=== PATIENT | female | born 1995 | race Caucasian/White ===

== ENCOUNTER 2018-12-21 12:11 | Emergency (ER) | payer SELFPAY ==
[2018-12-21 12:12] VITALS: BP 133/94; PULSE 92; RESP 16; TEMP 37.2; O2SAT 97; BMI 23.8
--- NOTE | 2018-12-21 12:27 | CT_ITS ---
STUDY: CT ABDOMEN AND PELVIS WITHOUT CONTRAST REASON FOR EXAM: Female, 23 years old. Diffuse abdominal pain. RADIATION DOSAGE (If Supplied By Facility): CTDIvol = ( 6.33 ) mGy, DLP = ( 310.18 ) mGycm TECHNIQUE: Transaxial images were obtained from the dome of the diaphragm to the symphysis pubis without oral contrast, and without intravenous contrast. Sagittal and coronal images were reconstructed. Individualized dose optimization techniques were used for this CT. COMPARISON: None. FINDINGS: The visualized lung bases are unremarkable. The visualized portions of the heart are within normal limits. Normal liver. Normal gallbladder and extrahepatic biliary system. Normal spleen. Normal pancreas. Normal bilateral adrenal glands. Normal right kidney. Normal left kidney. Normal visualized stomach. Normal small intestine. Normal colon. The appendix is visualized and appears normal. Normal abdominal aorta. Normal inferior vena cava. Normal retroperitoneum. Normal urinary bladder. Normal abdominal wall. Normal osseous structures. CT/Abdomen/Pelvis without Cont IMPRESSION: Normal unenhanced CT of the abdomen and pelvis. Electronically Signed: Irving Lyles, at 14:55 EST , Service support ,
[2018-12-21 13:00] LABS: Absolute Lymphocyte Count 1.95 X10^3/ul (0.83-4.51); Absolute Neutrophil Count 5.1 X10^3/uL (2.0-7.7); Basophil# 0.02 X10^3/uL; Basophil% 0.3 % (0-1); Eosinophil# 0.07 X10^3/uL; Eosinophils% 0.9 % (0-5); Hemoglobin 13.9 g/dl (12.0-15.0); Lymphocyte # 1.95 X10^3/ul (4.0); Lymphocyte % 24.6 % (19-41); Mean Corp Hgb Conc 33.1 g/gl (32-36); Mean Corpuscular Volume 93.8 fL (81-99); Mean Platelet Vol. 9.8 fl (6.2-12.0); Monocyte# 0.75 X10^3/uL; Monocyte% 9.5 % (0-10); Neutrophil # 5.12 X10^3/uL (2.7-7.7); Neutrophil % 64.6 % (47-70); Platelet Count 287 K/mm3 (150-450); RBC Distribution Width CV 12.2 % (11.6-14.6); RBC Distribution Width SD 41.4 fl (35.1-43.9); Red Blood Count 4.48 M/mm3 (4.2-5.4); White Blood Count 7.9 K/mm3 (4.4-11.0)
[2018-12-21 13:01] LABS: POSITIVE COUNT NO; POSITIVE DIFFERENTIAL NO; POSITIVE MORPHOLOGY NO
[2018-12-21 13:21] LABS: ALB/GLOB Ratio 0.9 RATIO (0.9-2.4); AST(SGOT) 15 U/L (15-37); Alanine Aminotransfer ALT/SGPT 34 U/L (13-56); Albumin, Serum 3.8 g/dL (3.2-5.0); Alkaline Phosphatase 42 U/L (45-117); Anion Gap 7 (5-15); BUN 9 mg/dL (7-18); BUN/Creat Ratio 12.2 RATIO (10-20); Calcium,Total 8.9 mg/dL (8.5-10.1); Chloride 107 mmol/L (98-107); Creatinine, Serum 0.74 mg/dL (0.55-1.02); EST Glomerular Filtration Rate 101 mL/min (>60); Est Glom Filt Rate - Afr Amer 123 mL/min (>60); Estimated Creatinine Clearance 96.14 ml/min; Globulin 4.3 g/dL (2.2-4.2); Glucose 83 mg/dL (74-106); Lipase 170 U/L (73-393); Potassium 3.5 mmol/L (3.5-5.1); Protein, Total 8.1 g/dL (6.4-8.2); Sodium Level 138 mmol/L (136-145)
[2018-12-21] MEDS: 0.9% Normal Saline 1,000 ML 125 ML IV (13:22)
[2018-12-21 13:34] LABS: Pregnancy, Serum, hCG Quali. NEGATIVE Negative (0-9 Nonpreg)
[2018-12-21 13:35] LABS: Bacteria 0 SEEN /hpf (None Seen); Mucous, Urine 0 SEEN /hpf (<or=2+); Red Blood Cells-Urine 0 SEEN /hpf (0-5); Squamous Epithelial Cells - UA 0 SEEN /hpf (5-10)
[2018-12-21 13:41] LABS: Color, Urine Yellow (Yellow); Glucose, Dipstick Normal (Normal); Ketone-Dipstick Negative (Negative); Leukocyte Esterase-Dipstick 25 /ul (Negative); Nitrite-Dipstick Negative (Negative); Occult Blood-Urine 10 /ul (Negative); Protein-Dipstick Negative (Negative); Urine Bilirubin Dipstick Negative (Negative); Urine Clarity Clear (Clear); Urine Urobilinogen Normal (Normal); Urine pH 6.5 (5.0 - 8.0)
[2018-12-21 13:45] LABS: White Blood Cells 0-5 SEEN /hpf (0-5)
[2018-12-21 14:14] VITALS: PULSE 89; RESP 14; O2SAT 99
--- NOTE | 2018-12-21 14:54 | ED.DCSUM_ITS ---
- ER Visit Summary Date of Service: 12/21/18 Chief Complaint: [Abdominal pain] History of Present Illness: The patient is a 23 F [presents the emergency department complaint of abdominal pain for 3 days. Patient states the discomfort is been continuous. Patient denies any nausea or vomiting. Patient had one episode of watery stool yesterday but none since. Patient tells me she is had fever up to 102 at [facility] via forehead thermometer.. She denies any urinary symptoms such as urgency, frequency, or dysuria. Patient states that she did have an episode last week where she had some mild dysuria but apparently that has resolved. Patient was seen at [facility] today and had a urine dip and a that was negative. Patient states that she is not missed any menstrual periods. She denies any abnormal vaginal discharge. Patient is never been .] Physical Examination: [HEENT-PERRLA, EOMI. Cranial nerves II through XII grossly intact. TMs clear. Mucous membranes moist. No adenopathy. Cardiovascular-regular rate and rhythm without murmur or ectopy Lungs-clear to auscultation, chest wall stable without crepitus or subcu emphysema Abdomen-normoactive bowel sounds, soft. Patient has some mild diffuse tenderness on palpation. There is no rebound, rigidity, or peritoneal signs.. Extremities-intact ?4, normal range of motion, normal pulses, atraumatic] Test Results: [CBC with differential obtained showed a white blood cell count of 7.9, hemoglobin 13.9, hematocrit 42, platelets 287. Chemistries were unremarkable. LFTs were normal. Urinalysis was normal. HCG was negative. CT scan of the abdomen pelvis without contrast showed nothing acute.] Emergency Department Course and Treatment: [Patient did not want anything for pain in the emergency department.] Treatment Plan: [Patient will be given a prescription for Bentyl.] Disposition: [Discharged home in stable condition. Patient advised to return if worsening pain, fever, vomiting, or condition should worsen anyway.] Impression: [Abdominal pain-etiology uncertain.] This note was generated with [employer] software. It may contain incorrect words, spelling, and punctuation that were not noted in review of the chart prior to signing ED Disposition - Plan for ED Patient: Referrals: Care Physician,No Primary [Primary Care Provider] -
--- NOTE | 2018-12-21 15:21 | ED.DEP ---
ED Disposition - Plan for ED Patient: Instructions: ED Abdominal Pain Unkn Cause Prescriptions: Dicyclomine HCl [Bentyl] 20 mg PO TIDAC #20 cap Referrals: Care Physician,No Primary [Primary Care Provider] - Krissy Emerson DO [STAFF PHYSICIAN] - 5-7 Days
[2018-12-21 15:36] VITALS: BP 135/74; PULSE 82; RESP 16; O2SAT 99
== END 2018-12-21 15:37 | disposition home or self-care (01) ==
LOC: ED 12:57
PROVIDERS: Emergency Provider Emergency Medicine
DX: R10.9 Unspecified abdominal pain (principal)
CPT/HCPCS: 74176; 80053; 81001; 83690; 84703; 85025; 96360; 96361; 99283; J7030

== ENCOUNTER → 2019-01-25 15:27 | Outpatient (CLI) | payer MEDICAID, SELFPAY ==
[2019-01-25 19:59] LABS: Chlamydia Trachomatis by PCR Negative (Negative); Neisserai gonorrhoeae by PCR Negative (Negative); Probe Check PASS; Sample Adequacy Control PASS; Specimen Processing Control PASS
[2019-01-31 15:25] LABS: HPV Reflexed? NOT INDICATED
== END ==
PROVIDERS: Visit Provider Obstetrics & Gynecology
DX: Z32.01 Encounter for pregnancy test, result positive (principal); Z12.4 Encounter for screening for malignant neoplasm of cervix; Z11.3 Encounter for screening for infections with a predominantly sexual mode of transmission
CPT/HCPCS: 87491; 87591; 88175; G0145

== ENCOUNTER → 2019-02-08 10:05 | Outpatient (CLI) | payer MEDICAID, SELFPAY ==
[2019-02-08 10:44] LABS: Color, Urine Yellow (Yellow); Glucose, Dipstick Normal (Normal); Ketone-Dipstick Negative (Negative); Leukocyte Esterase-Dipstick 25 /ul (Negative); Nitrite-Dipstick Negative (Negative); Occult Blood-Urine Negative /ul (Negative); Protein-Dipstick Negative (Negative); Specific Gravity, Urine 1.015 (1.002-1.030); Urine Bilirubin Dipstick Negative (Negative); Urine Clarity Cloudy (Clear); Urine Urobilinogen Normal (Normal)
[2019-02-08 10:50] LABS: Absolute Lymphocyte Count 1.87 X10^3/ul (0.83-4.51); Absolute Neutrophil Count 4.4 X10^3/uL (2.0-7.7); Basophil# 0.02 X10^3/uL; Basophil% 0.3 % (0-1); Eosinophil# 0.05 X10^3/uL; Eosinophils% 0.7 % (0-5); Hematocrit 39.8 % (37-47); Hemoglobin 14.1 g/dl (12.0-15.0); Lymphocyte # 1.87 X10^3/ul (4.0); Lymphocyte % 27.5 % (19-41); Mean Corp Hgb Conc 35.4 g/gl (32-36); Mean Corpuscular Hgb 31.5 pg (27.0-32.0); Mean Platelet Vol. 10.4 fl (6.2-12.0); Monocyte# 0.49 X10^3/uL; Monocyte% 7.2 % (0-10); Neutrophil # 4.35 X10^3/uL (2.7-7.7); Neutrophil % 64.2 % (47-70); Platelet Count 274 K/mm3 (150-450); RBC Distribution Width SD 38.6 fl (35.1-43.9); Red Blood Count 4.47 M/mm3 (4.2-5.4); White Blood Count 6.8 K/mm3 (4.4-11.0)
[2019-02-08 11:03] LABS: COTININE Drug Screen Negative (<200 ng/mL)
[2019-02-08 11:06] LABS: POSITIVE COUNT NO; POSITIVE DIFFERENTIAL NO; POSITIVE MORPHOLOGY NO
[2019-02-08 11:13] LABS: Amphetamine Urine VISTA NEGATIVE (<1000 ng/mL); Barbiturate Urine VISTA NEGATIVE (< 200 ng/mL); Benzodiazepine Urine VISTA NEGATIVE (< 200 ng/mL); Cocaine Urine VISTA NEGATIVE (< 300 ng/mL); Ecstacy Urine VISTA NEGATIVE (< 500 ng/mL); Methadone Urine VISTA NEGATIVE (< 300 ng/mL); PCP Urine VISTA NEGATIVE (< 25 ng/mL); THC Urine VISTA POSITIVE (< 50 ng/mL); Vista UDS pH Range 7
[2019-02-08 12:00] LABS: HIV - WCH Non-Reactive (Nonreactive); Rubella IgG 109.7 IU/mL
[2019-02-08 12:01] LABS: Thyroid Stim Hormone (TSH) 1.13 uIU/mL (0.358-3.74)
[2019-02-09 16:47] LABS: HEPATITIS B SURFACE AG Negative (Negative); Hep C Antibodies <0.1 s/co ratio (0.0-0.9)
[2019-02-10 01:43] LABS: Prenatal RPR NONREACTIVE (NONREACTIVE)
== END ==
PROVIDERS: Visit Provider Obstetrics & Gynecology
DX: Z34.81 Encounter for supervision of other normal pregnancy, first trimester (principal)
CPT/HCPCS: 36415; 80307; 81002; 84443; 85025; 86703; 86762; 86803; 87340

== ENCOUNTER → 2019-04-24 17:15 | Outpatient (CLI) | payer MEDICAID, SELFPAY ==
[2019-04-24 14:51] VITALS: BMI 23.8
== END ==
PROVIDERS: Referring Provider Nurse Practitioner Women's Health; Visit Provider Nurse Practitioner Women's Health
DX: Z34.90 Encounter for supervision of normal pregnancy, unspecified, unspecified trimester (principal)
CPT/HCPCS: 87086; 87088

== ENCOUNTER → 2019-04-28 15:58 | Outpatient (CLI) | payer MEDICAID, SELFPAY ==
[2019-04-24 14:37] VITALS: BMI 24.7
[2019-04-24 14:51] VITALS: BMI 23.8
--- NOTE | 2019-04-28 16:00 | US_ITS ---
STUDY: SECOND AND THIRD TRIMESTER OBSTETRICAL ULTRASOUND REASON FOR EXAM: Female, 23 years old. Anatomy scan. LMP: 11/25/2018 TECHNIQUE: Transabdominal and Transvaginal TECHNICAL QUALITY: Adequate. PRIOR ULTRASOUND: None. FINDINGS: There is a single intrauterine fetus. The fetus is in a variable presentation. There is demonstrated cardiac activity with a heart rate of 146 bpm. There is a normal amniotic fluid volume. The largest amniotic fluid pocket measures 6.3 cm. The amniotic fluid index (BLANCA) is 15.6 cm. The placenta is posterior with a marginal previa. There are Grade 0 placental changes. The cervix measures 4.2 cm in length. The bilateral adnexal regions are normal. BIOMETRY: BPD: 4.8: 20 weeks, 4 days HC: 19.2: 21 weeks, 4 days AC: 17.5: 22 weeks, 4 days FL: 3.7: 22 weeks, 0 days CI: FL/BPD: FL/HC: FL/AC: HC/AC: age by current US: 21 weeks, 5 days. SAUL by current US: 09/03/2019. Estimated weight: 473 grams, +/- 69 grams, 47 %. age by prior US: weeks, days. SAUL by prior US: . Age by LMP: 22 weeks, 0 days. SAUL by LMP: 09/01/2019. ANATOMY: Gender: Male Cranium: Normal lateral ventricles. Normal choroid plexus. Normal cerebellum. Normal cisterna magna. Normal face, nose and lips. Chest: Normal 4-chamber heart. Abdomen/Pelvis: Normal diaphragm. Normal stomach. Normal abdominal wall. Normal cord insertion. Normal 3 vessel cord. Normal kidneys. Normal bladder. Spine: Normal cervical spine. Normal thoracic spine. Normal lumbar spine. Normal sacrum. Extremities: Normal bilateral upper extremities. Normal bilateral lower extremities. US/OB Anatomy Scan IMPRESSION: Single live fetus in a variable presentation. No demonstrated anatomic abnormality. Placenta is grade 0 and is marginal previa. Cervix is closed. age by current US: 21 weeks, 5 days. SAUL by current US: 09/03/2019. Estimated weight: 473 grams, +/- 69 grams, 47 %. Electronically Signed: Kyle Bey MD at 22:27 EDT , Service support ,
== END ==
PROVIDERS: Referring Provider Nurse Practitioner Women's Health; Visit Provider Nurse Practitioner Women's Health
DX: Z34.90 Encounter for supervision of normal pregnancy, unspecified, unspecified trimester (principal)
CPT/HCPCS: 76805

== ENCOUNTER → 2019-05-26 09:50 | Outpatient (CLI) | payer MEDICAID, SELFPAY ==
[2019-05-26 09:05] VITALS: BMI 23.8
[2019-05-26 10:28] LABS: Absolute Lymphocyte Count 1.53 X10^3/uL (0.83-4.51); Absolute Neutrophil Count 6.6 X10^3/uL (2.0-7.7); Basophil# 0.02 X10^3/uL; Basophil% 0.2 % (0-1); Eosinophils% 1.1 % (0-5); Hematocrit 35.4 % (37-47); Hemoglobin 12.1 g/dL (12.0-15.0); Lymphocyte # 1.53 X10^3/ul (4.0); Lymphocyte % 17.1 % (19-41); Mean Corp Hgb Conc 34.2 g/dL (32-36); Mean Corpuscular Hgb 32.7 pg (27.0-32.0); Mean Corpuscular Volume 95.7 fL (81-99); Mean Platelet Vol. 9.6 fl (6.2-12.0); Monocyte# 0.63 X10^3/uL; Monocyte% 7.1 % (0-10); NRBC Flagged by Analyzer 0 % (0-5); Neutrophil # 6.56 X10^3/uL (2.7-7.7); Neutrophil % 73.5 % (47-70); Platelet Count 253 K/mm3 (150-450); RBC Distribution Width CV 12.6 % (11.6-14.6); RBC Distribution Width SD 43.8 fl (35.1-43.9); White Blood Count 8.9 K/mm3 (4.4-11.0)
[2019-05-26 10:42] LABS: Glucose Challenge Gest 1H 50g 87 mg/dL (70-140)
== END ==
PROVIDERS: Referring Provider Obstetrics & Gynecology; Visit Provider Obstetrics & Gynecology
DX: Z34.92 Encounter for supervision of normal pregnancy, unspecified, second trimester (principal)
CPT/HCPCS: 36415; 82950; 85025

== ENCOUNTER → 2019-06-09 07:52 | Outpatient (CLI) | payer MEDICAID, SELFPAY ==
[2019-04-24 14:51] VITALS: BMI 23.8
[2019-05-26 09:05] VITALS: BMI 23.8
--- NOTE | 2019-06-09 07:53 | US_ITS ---
STUDY: SECOND AND THIRD TRIMESTER OBSTETRICAL ULTRASOUND REASON FOR EXAM: Female, 23 years old. Follow-up for previous low-lying placenta. LMP: November 25, 2018. TECHNIQUE: Transabdominal and Transvaginal TECHNICAL QUALITY: Adequate. PRIOR ULTRASOUND: Comparison is made with prior examination dated April 28, 2019. FINDINGS: There is a single intrauterine fetus. The fetus is in a cephalic presentation. There is demonstrated cardiac activity with a heart rate of 142 bpm. There is a normal amniotic fluid volume. The largest amniotic fluid pocket measures 4.4 cm x 3.4 cm. The amniotic fluid index (BLANCA) is is within normal limits. The placenta is posterior and low lying but not previa in location. The tip of the placenta is 1.5 cm proximal to the os. There are Grade 0 placental changes. The cervix measures 3.7 cm in length. The bilateral adnexal regions are normal. BIOMETRY: BPD: 6.68 cm: 27 weeks, 0 days HC: 26.34 cm: 28 weeks, 5 days AC: 23.62 cm: 28 weeks, 0 days FL: 5.08 cm: 27 weeks, 2 days CI: 72% FL/BPD: 76% FL/HC: FL/AC: 22% HC/AC: 1.12 age by current US: 27 weeks, 6 days. SAUL by current US: September 02, 2019. Estimated weight: 1114 grams, +/- 163 grams, 27 %. age by prior US: 27 weeks, 5 days. SAUL by prior US: September 03, 2019. Age by LMP: 28 weeks, 0 days. SAUL by LMP: September 01, 2019. US/OB Limited With Biometrics IMPRESSION: Single live intrauterine gestation with a mean gestational age of 27 weeks and 5 days. The measurements obtained today following the normal expected range. Low-lying placenta with no evidence of previa. The tip is at 1.5 cm proximal to the cervical os. Electronically Signed: Irving Lyles, at 14:10 EDT , Service support ,
== END ==
PROVIDERS: Referring Provider Nurse Practitioner Women's Health; Visit Provider Nurse Practitioner Women's Health
DX: O44.42 Low lying placenta NOS or without hemorrhage, second trimester (principal); Z3A.27 27 weeks gestation of pregnancy
CPT/HCPCS: 76816; 76817

== ENCOUNTER → 2019-07-10 09:01 | Outpatient (CLI) | payer MEDICAID, SELFPAY ==
[2019-05-26 09:05] VITALS: BMI 23.8
[2019-07-05 08:28] VITALS: BMI 23.8
--- NOTE | 2019-07-10 09:03 | US_ITS ---
STUDY: SECOND AND THIRD TRIMESTER OBSTETRICAL ULTRASOUND REASON FOR EXAM: Female, 24 years old placenta previa LMP: TECHNIQUE: Transabdominal TECHNICAL QUALITY: Adequate. PRIOR ULTRASOUND: June 09, 2019 FINDINGS: There is a single intrauterine fetus. The fetus is in a cephalic presentation. There is demonstrated cardiac activity with a heart rate of 163 bpm. There is a normal amniotic fluid volume. The largest amniotic fluid pocket measures 4 cm. The amniotic fluid index (BLANCA) is 12.3 cm. The placenta is posterior and fundal There are Grade 0 placental changes. The cervix measures 3.9 cm in length. The bilateral adnexal regions are nonvisualized BIOMETRY: BPD: 7.76 cm: 31 weeks, 1 days HC: 30.02 cm: 33 weeks, 3 days AC: 27.58 cm: 31 weeks, 5 days FL: 5.97 cm: 31 weeks, 1 days CI: 0.74 FL/BPD: 0.77 FL/HC: FL/AC: 0.22 HC/AC: 1.09 age by current US: 31 weeks, 6 days. SAUL by current US: September 05, 2019. Estimated weight: 1798 grams, +/- 263 grams, 17 %. age by prior US: 32 weeks, 2 days. SAUL by prior US: September 02, 2018. Age by LMP: 32 weeks, 3 days. SAUL by LMP: September 01, 2019. ANATOMY: Not studied at this time. Previously noted low-lying placenta has resolved US/OB Limited With Biometrics IMPRESSION: Viable intrauterine gestation approximately 32 weeks gestational age. No evidence for low-lying placenta or placenta previa at this time Electronically Signed: Malcolm Snow MD at 16:57 EDT , Service support ,
== END ==
PROVIDERS: Referring Provider Nurse Practitioner Women's Health; Visit Provider Nurse Practitioner Women's Health
DX: O44.20 Partial placenta previa NOS or without hemorrhage, unspecified trimester (principal); Z3A.00 Weeks of gestation of pregnancy not specified
CPT/HCPCS: 76816

== ENCOUNTER → 2019-08-09 15:08 | Outpatient (CLI) | payer MEDICAID, SELFPAY ==
[2019-08-09 09:03] VITALS: BMI 23.8
== END ==
PROVIDERS: Referring Provider Nurse Practitioner Women's Health; Visit Provider Nurse Practitioner Women's Health
DX: Z36.85 Encounter for antenatal screening for Streptococcus B (principal)
CPT/HCPCS: 87081

== ENCOUNTER 2019-08-30 00:35 | Inpatient (IN) | payer MEDICAID, SELFPAY ==
[2019-08-23 09:04] VITALS: BMI 23.8
[2019-08-30 01:18] VITALS: BMI 28.3
[2019-08-30] MEDS: Lactated Ringers 500 ML 999 ML IV (01:35)
[2019-08-30 01:59] LABS: Absolute Lymphocyte Count 2.44 X10^3/uL (0.83-4.51); Absolute Neutrophil Count 4.9 X10^3/uL (2.0-7.7); Basophil# 0.03 X10^3/uL; Basophil% 0.4 % (0-1); Eosinophil# 0.09 X10^3/uL; Eosinophils% 1.1 % (0-5); Hemoglobin 11.8 g/dL (12.0-15.0); Lymphocyte # 2.44 X10^3/ul (4.0); Lymphocyte % 28.9 % (19-41); Mean Corp Hgb Conc 34.7 g/dL (32-36); Mean Corpuscular Hgb 32.7 pg (27.0-32.0); Mean Corpuscular Volume 94.2 fL (81-99); Mean Platelet Vol. 10.4 fl (6.2-12.0); Monocyte# 0.91 X10^3/uL; Monocyte% 10.8 % (0-10); NRBC Flagged by Analyzer 0 % (0-5); Neutrophil # 4.91 X10^3/uL (2.7-7.7); Neutrophil % 58.2 % (47-70); Platelet Count 212 K/mm3 (150-450); RBC Distribution Width CV 12.4 % (11.6-14.6); RBC Distribution Width SD 42.7 fl (35.1-43.9); Red Blood Count 3.61 M/mm3 (4.2-5.4); White Blood Count 8.4 K/mm3 (4.4-11.0)
[2019-08-30] MEDS: Ondansetron 4 MG/2 ML Vial IV ×2 (02:12→07:17)
[2019-08-30] MEDS: Lactated Ringers 1,000 ML 50 ML IV (02:16)
[2019-08-30] MEDS: 0.9% Saline Lock 10 ML Syringe IV ×3 (02:16→10:09)
[2019-08-30 03:37] LABS: Amphetamine Urine VISTA NEGATIVE (<1000 ng/mL); Barbiturate Urine VISTA NEGATIVE (< 200 ng/mL); Benzodiazepine Urine VISTA NEGATIVE (< 200 ng/mL); Cocaine Urine VISTA NEGATIVE (< 300 ng/mL); Ecstacy Urine VISTA NEGATIVE (< 500 ng/mL); Methadone Urine VISTA NEGATIVE (< 300 ng/mL); PCP Urine VISTA NEGATIVE (< 25 ng/mL); THC Urine VISTA NEGATIVE (< 50 ng/mL); Vista UDS pH Range 6
[2019-08-30] MEDS: Nalbuphine 10 MG/ML Ampul IV (07:17)
--- NOTE | 2019-08-30 07:29 | PCM.HP.OB ---
- Problem List (1) SROM (spontaneous rupture of membranes) Status: Acute (2) Genital HSV Status: Acute Qualifiers: Comment: acyclovir at 36 weeks (3) Influenza vaccination declined by caregiver Status: Acute (4) Status: Acute Qualifiers: Comment: declined all genetic, carrier, and ntd screening. (5) Supervision of normal Status: Acute Qualifiers: Comment: PRR SAUL 09/01/19 bertrand Garcia (Bill) History Date of Admission: 08/30/19 Final SAUL: 09/01/19 Gestational age: 39 Weeks and 5 Days History of this : This is a 24 year-old, at 39 weeks gestational age presents IAL dilated and ruptured. clear fluid no vb good fm no complications in . Medical History: Medical History (Last Reviewed 08/23/19 @ 09:04 by Jane Murphy) No significant medical problems Surgical History: Surgical History (Last Reviewed 08/23/19 @ 09:04 by Jane Murphy) Inguinal hernia K40.90 repaired 2001 Allergies sulfamethoxazole [From Septra] Allergy (Verified 08/23/19 09:03) Rash trimethoprim [From Septra] Allergy (Verified 08/23/19 09:03) Rash Home Medications: Home Medications vitamin#30 30 mg iron-10 mg iron-folic acid 1 mg-omg3 capsule 1 cap PO DAILY cap 05/15/19 Valacyclovir HCl [Valacyclovir] 500 mg PO DAILY 08/30/19 Smoking Status: Never smoker Alcohol: None Substance Use Type: Marijuana Number of Fetus(es): 1 NST - FHR Rate Baby A Baseline: 130 Variability:: Moderate Accelerations:: 15 x 15 Decelerations:: None NST Reactive:: Yes FHR Category:: Category I Uterine Activity:: q 2-3 History Past Pregnancies: Past Pregnancies Delivery Date Name GA/Weeks Outcome Route Weight Infant Gender Labor Length Anesthesia Delivery Location Provider FOB Labs: Mom's Labs & Results 08/30/19 08/30/19 08/30/19 01:35 01:35 02:50 WBC 8.4 RBC 3.61 L Hgb 11.8 L Hct 34.0 L MCV 94.2 MCH 32.7 H MCHC 34.7 RDW Std Deviation 42.7 RDW Coeff of Catie 12.4 Plt Count 212 MPV 10.4 Immature Gran % (Auto) 0.600 Neut % (Auto) 58.2 Lymph % (Auto) 28.9 Emmet % (Auto) 10.8 H Eos % (Auto) 1.1 Baso % (Auto) 0.4 Absolute Neuts (auto) 4.9 Absolute Lymphs (auto) 2.44 Nucleated RBC % 0 Urine Opiates Screen NEGATIVE Urine Methadone Screen NEGATIVE Ur Barbiturates Screen NEGATIVE Ur Phencyclidine Scrn NEGATIVE Ur Amphetamines Screen NEGATIVE U Methamphetamin-MDMA NEGATIVE U Benzodiazepines Scrn NEGATIVE Urine Cocaine Screen NEGATIVE U Cannabinoids Screen NEGATIVE Ur Drug Screen Comment Blood Type B POSITIVE Antibody Screen NEGATIVE Course Did the patient receive Yes care? Labs Blood Type: B RH: POSITIVE RPR/VDRL/Syphilis Nonreactive Rubella status Immune HbSAg Negative Date Done: 02/08/19 Chlamydia Negative Gonorrhea Negative HIV/AIDS Non-Reactive Group B Strep: Negative Current Obstetrical History Gestational Diabetes No Incompetent Cervix No Infertility No IUGR No Macrosomia No Hypertension/Pre-eclampsia No Placenta Previa/Abruption No PTL/PROM No Uterine anomaly No Oligohydramnios No Polyhydramnios No Multiple gestation No Past Medical History Asthma No Diabetes No Hypertension No Heart disease No Mitral valve prolapse No Neurologic/Seizure disorder/ No Migraines Kidney disease No Liver disease No Varicosities No Clotting disorders/Hx of DVT No Thyroid Dysfunction No Other medical diseases No Psychiatric disorders No Major trauma No Abnormal PAP smear No Sleep apnea No Mammogram in the last 2 years No Enter 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 Expected Delivery Method: Spontaneous Vaginal Describe any other labor & delivery plans:: additional social history: Spouse: Jose Rider: Bill. OB Visit. SAUL Calculator. Estimated Delivery DateMethodCurrent WG. Current Hhwuocdt37/08/19LMP (Certain)39w 0d. Other Jqidildru46/10/19Ultrasound #138w 5d. Expected Delivery Route/Plan. . Labor Preferences-. labor support person: Jose, mom hetal. pain management: wants natural. cut cord/dad catch: yes. : yes. PP control planned: pill. discussed possible routes of delivery and associated risks: []. special requests: []. Specific Issue/Plans. flu vaccine: tdap vaccine: declines. rhogam: na. LARC form signed: declined Review of Systems Constitutional: Denies: Fever, Malaise Eyes: Denies: Blurred vision, Vision Change HEENT: Denies: Head Aches, Visual Changes Cardiovascular: Denies: Chest Pain, Palpitations Respiratory: Denies: Cough, Shortness of Breath, Wheezing Gastrointestinal: Denies: Abdominal Pain, Diarrhea, Nausea, Vomiting Genitourinary: Denies: Dysuria, Hematuria Musculoskeletal: Denies: Joint Pain, Muscle pain Skin: Denies: Lesions, Rash Neurological: Denies: Blurred vision, Focal weakness, Headaches Psychiatric: Denies: Anxiety, Depression Endocrine: Denies: Heat/ Cold Intolerance Hematologic/ Lymphatic: Denies: Easy Bruising, Easy Bleeding Physical Exam General: Alert, Cooperative, No apparent distress HEENT: Atraumatic, Normocephalic. Negative for: Thyromegaly, Lymphadenopathy Cardiovascular: Regular rate Lungs: Normal air movement Abdomen: Soft, Non Tender, Gravid Neurological: Deep Tendon Reflexes 2+/4 and Symmetrical, Neuro grossly intact. Negative for: Clonus AIR BRAKE ADJUSTER: Normal external genitalia. Negative for: Vulvar lesions Estimated gestational size: Appropriate for gestational size Presentation: Cephalic Cervix Dilation (cm): 6 Assessment/Plan All Active Problems (Last Reviewed 08/23/19 @ 09:04 by Jane Murphy) SROM (spontaneous rupture of membranes) (Acute) Influenza vaccination declined by caregiver (Acute) Genital HSV (Acute) Supervision of normal (Acute) (Acute) HSV (herpes simplex virus) infection (Resolved) Low lying placenta nos or without hemorrhage, third trimester (Resolved) Marginal placenta previa (Resolved) This is a 24 year-old, , at 39 weeks gestational age presents IAL. Patient presents IAL, plan expectant management for , pitocin PRN if needed. Pain management: prefers minimal intervention. GBS negative. Management of any complications: None I have reviewed the [facility] and made any clinically relevant updates.
--- NOTE | 2019-08-30 08:37 | PCM.OPRPT ---
Problem List (1) SROM (spontaneous rupture of membranes) Status: Acute (2) Genital HSV Status: Acute Qualifiers: Comment: acyclovir at 36 weeks (3) Influenza vaccination declined by caregiver Status: Acute (4) Status: Acute Qualifiers: Comment: declined all genetic, carrier, and ntd screening. (5) Supervision of normal Status: Acute Qualifiers: Comment: PRR SAUL 09/01/19 bertrand Garcia (Bill) Vaginal Delivery Maternal Presentation: Active Labor ial 39w5d Amniotic Membrane Rupture Type: Spontaneous at home Amniotic Fluid Description: Clear Final SAUL: 09/01/19 Gestational age: 39 Weeks and 5 Days Date of Procedure: 08/30/19 Pre-Operative Diagnosis: ial Post-Operative Diagnosis: same Surgery/ Procedure Performed: Spontaneous Vaginal Delivery Type of Anesthesia: None Multi Select Codes - Urinary/Genital Urinary/Genital CPT Codes: 26644 Vaginal Delivery [facility]
[2019-08-30] MEDS: Oxytocin 30 units/NS 500 ml 30 UNITS/500 ML IV.SOLN 334 UNITS IV (10:09)
[2019-08-30] MEDS: Methylergonovine 0.2 MG/ML Ampul IM (10:12)
--- NOTE | 2019-08-30 10:17 | PCM.OPRPT ---
Problem List (1) SROM (spontaneous rupture of membranes) Status: Acute (2) Genital HSV Status: Acute Qualifiers: Comment: acyclovir at 36 weeks (3) Influenza vaccination declined by caregiver Status: Acute (4) Status: Acute Qualifiers: Comment: declined all genetic, carrier, and ntd screening. (5) Supervision of normal Status: Acute Qualifiers: Comment: PRR SAUL 09/01/19 bertrand Garcia (Bill) (6) Vaginal delivery Status: Acute (7) Uterine atony, , without hemorrhage Status: Acute Vaginal Delivery Maternal Presentation: Active Labor 9w5d IAL Method of Induction: Pitocin Amniotic Membrane Rupture Type: Spontaneous at home Amniotic Fluid Description: Clear Final SAUL: 09/01/19 Gestational age: 39 Weeks and 5 Days Date of Procedure: 08/30/19 Pre-Operative Diagnosis: ial Post-Operative Diagnosis: same Surgery/ Procedure Performed: Spontaneous Vaginal Delivery Type of Anesthesia: None Description of Procedure: Patient began pushing and delivered the head in the BLU presentation. The head was delivered atraumatically]. The anterior and posterior shoulders delivered without complication followed by the rest of the infant and the infant was placed on the maternal abdomen. Delayed cord clamping was employed for approximately 60 seconds. Cord was clamped and cut and gentle traction was applied to the cord and the placenta delivered spontaneously immediately following it was noted to be intact with three-vessel cord. The perineum and vagina were inspected and noted to have no significant laceration. some atony was noted initially and treated with bimanul massage and methergine, pitocin. this resolved. EBL was 500 cc. Patient and tolerated delivery well. Presentation: BLU Placental Delivery Description: Spontaneous Cord Vessel Description: 3 Vessels Cord Entanglement: None Estimated Blood Loss: 500 A gender: Female Episiotomy Description: None Laceration: None Medications given after delivery: IV Pitocin, IM Methergin Complications: None
[2019-08-30 17:00] VITALS: BP 97/60; PULSE 80; RESP 16; TEMP 37.4
[2019-08-30 20:16] VITALS: BP 116/68; PULSE 96; RESP 16; TEMP 37.3
[2019-08-30] MEDS: Naproxen 250 MG Tablet 500 MG PO (23:43)
[2019-08-30 23:45] VITALS: BP 106/64; PULSE 102; RESP 16; TEMP 37.4
[2019-08-31 05:05] VITALS: BP 105/58; PULSE 77; RESP 16; TEMP 37.2
[2019-08-31] MEDS: Acetaminophen 325 MG Tablet PO (05:22)
[2019-08-31 08:15] VITALS: BP 109/69; PULSE 84; RESP 16; TEMP 36
[2019-08-31] MEDS: Senna/Docusate Sodium 1 Tablet PO (08:35)
[2019-08-31 09:19] VITALS: PULSE 84; RESP 16
[2019-08-31 14:24] VITALS: BP 109/59; PULSE 80; RESP 16; TEMP 36.7
--- NOTE | 2019-08-31 16:00 | CASEMGMT ---
Social Work Assessment Labor and Delivery Unit Date of Referral: 08-31-2019 Time of Referral: [phone] Referred By: notification by nursing staff Date of Intervention: 08-31-2019 Reason for Referral: maternal drug screen positive during ; negative at delivery. History obtained from: medical records, mother of baby (MOB) Karen, and father of baby (FOB) Jose Porras. Household composition: MOB and FOB live alone in a home. No reported safety concerns. Patient's parent/guardian status: TALI is 24 years old and to FOB for the last 2 years, but have been together longer. MOB denies any form of abuse in relationship with FOB. FOB has one older sone, Bill, who lives out of state. MOB and FOB go to visit regularly. baby Seun Porras is the first child for MOB and FOB together. Medical History: TALI is G1, P0 to 1 after delivering Seun. care started it [facility] but then transferred care to Dr. Arias when MOB found out usual OBGYN was leaving practice in [place]. MOB transferred care at 22 weeks. Educational Status: No issues reading writing or with learning comprehension. 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 No reported issues with finances at this time. Supplies: Report to have all needed supplies including safe sleep space and car seat. MOB is breast feeding and reports this is going well. Childcare/Caregiver(s): MOB and then help from FOB. Transportation: No issues reported or indicated. Programs/Agencies Involved: No agency involvement other than Medicaid through S. MOB declines referral to [facility] or WIC, but accepting of information on both services. Children Services/Legal Issues: None reported or indicated. Behavioral Health Issues: Mental Health History: MOB denies history of depression, anxiety, thoughts of suicide, or other mental health concerns. Substance Use History: Social alcohol use but denies in . MOB admits to smoking marijuana at a [employer], prior to knowledge. MOB denies use after finding out about . Denies history of other drug use or abuse. Drug Screens: Positive at first visit with first OB on 02.08.2019. No retesting until deliver, which was negative. Baby's urine is negative and meconium is pending. Family/Social Stressors: No reported stressors. was planned. Support Systems: MOB reports FOB is a strong support, as well as both sides of the family. MOB reports to feel to have adequate support. FOB does over half of his sheet metal worker apprentice, so will be around to help MOB out if needed over the next few weeks. Depression/Shaken Baby/Safe Sleeping : Information given on safe sleeping, shaken baby prevention and tips to soothe baby, and depression. ASSESSMENT: Met with MOB and FOB together and then with MOB privately. No issues when social service manager explained need to talk to MOB privately for a bit. Verbally reviewed the [facility] Depression screen with MOB. Score was a 0. No indication of depression or anxiety present at this time. When FOB was present, did verbally review depression and anxiety, risk factors, and importance of seeking out help and assistance should symptoms arise. Both MOB and FOB express understanding. During private conversation with MOB, MOB denies any form of abuse, control, intimidation, or coercion in relationship with FOB. MOB and FOB report to have needed baby supplies, to have enough support from family, and are looking forward to going home with the baby. While alone with MOB, addressed the positive drug screen during . MOB admits to smoking marijuana while at a [employer] with friends and that MOB did not think or know she was . MOB reports FOB is aware of this. MOB reports now that she and FOB are parents, priorities are shifting and previously accepted extracurricular activities are not a priority or something in the plans for the future. MOB report being a parents to Seun is the most important and denies intent or desire to use marijuana again in the future. Educated MOB that should the meconium drug screen come back positive that children services would follow up with parents in the community. MOB accepted information presented. Note, during social work visit MOB was attentive to baby, had baby to breast and was gentle in how handled the baby. MOB endorsing loving feelings towards the baby. No concerns voiced by nursing staff regarding parent/child interactions or bonding. Safe Plan of Care for related to substance use: to abstain from future substance use. PLAN: MOB and baby to home when ready for discharge. Provided with [facility], depression packet, [facility] information, WIC contact information. Monitor for meconium drugs screen results. No other services requested or indicated. -BRENTON Jimenez, CAR DUMPER
[2019-08-31 19:50] VITALS: BP 109/64; PULSE 78; RESP 16; TEMP 37.2
--- NOTE | 2019-08-31 21:54 | PCM.PN.OB ---
Patient Problems: Active and Suspected Problems (Last Reviewed 08/23/19 @ 09:04 by Jane Murphy) SROM (spontaneous rupture of membranes) (Acute) Vaginal delivery (Acute) Uterine atony, , without hemorrhage (Acute) Subjective: doing well no complaints pain controlled no CP SOB N V ambulating well tolerating po lochia moderate, going well - Physical Exam Vitals/I&O's: Vital Signs Temp Pulse Resp BP 98.9 F 78 16 109/64 08/31/19 19:50 08/31/19 19:50 08/31/19 19:50 08/31/19 19:50 Oxygen Delivery Method Room Air Weight: 160 lb Body Mass Index (BMI) 28.3 Intake and Output for Last 24 Hours 08/29/19 08/30/19 08/31/19 23:59 23:59 23:59 Intake Total 2500.83 / 2500.83 Output Total 3076 / 3076 45 / 45 Balance -575.17 / -575.17 -45 / -45 General: Alert, Oriented x3 Current Medications Acetaminophen (Tylenol) 325 - 650 mg PO Q4H PRN PRN PRN Reason: Pain Score 1-3/10 Last Admin: 08/31/19 05:22 Dose: 650 mg Documented by: Acetaminophen (Tylenol) 1,000 mg PO Q8H PRN PRN PRN Reason: Pain Score 1-3/10 Al Hydroxide/Mg Hydroxide (Mylanta Ii) 15 - 30 ml PO Q4H PRN PRN PRN Reason: INDIGESTION Bisacodyl (Dulcolax) 10 mg RECTAL UD PRN PRN Reason: If no BM Citric Acid/Sodium Citrate (Bicitra) 30 ml PO X1 PRN PRN Reason: Section Dibucaine (Dibucaine) 1 applic TOPICAL TID PRN PRN; Protocol PRN Reason: Discomfort Hydrocortisone (Hytone) 1 applic TOPICAL TID PRN PRN; Protocol PRN Reason: Discomfort Lactated Ringer's () 500 mls @ 999 mls/hr IV .Q31M PRN PRN Reason: Epidural Lactated Ringer's () 500 mls @ 999 mls/hr IV .Q31M PRN PRN Reason: Corrective Measures Last Infusion: 08/30/19 02:15 Dose: Infused Documented by: Lactated Ringer's () 1,000 mls @ 50 mls/hr IV .Q20H GISELL Last Admin: 08/31/19 07:38 Dose: Not Given Documented by: Methylergonovine Maleate (Methergine) 0.2 mg IM X1 PRN PRN Reason: Excess bleeding/uterine atony Last Admin: 08/30/19 10:12 Dose: 0.2 mg Documented by: Nalbuphine HCl (Nubain) 5 - 10 mg IV Q3H PRN PRN PRN Reason: Pain Score 4-10/10 Last Admin: 08/30/19 07:17 Dose: 10 mg Documented by: Nalbuphine HCl (Nubain) 5 - 10 mg SC Q3H PRN PRN PRN Reason: Pain Score 4-10/10 Naproxen (Naprosyn) 500 mg PO Q8H PRN PRN PRN Reason: Pain Score 1-3/10 Last Admin: 08/30/19 23:43 Dose: 500 mg Documented by: Ondansetron HCl (Zofran) 4 mg IV Q4H PRN PRN PRN Reason: NAUSEA Last Admin: 08/30/19 07:17 Dose: 4 mg Documented by: Ondansetron HCl (Zofran) 4 mg IV Q4H PRN PRN PRN Reason: Nausea Oxycodone HCl (Oxyir) 5 - 10 mg PO Q4H PRN PRN PRN Reason: Pain Score 4-10/10 Prochlorperazine Edisylate (Compazine Iv) 10 mg IV Q6H PRN PRN PRN Reason: NAUSEA Senna/Docusate Sodium (Senokot-S, Mila-Colace) 1 - 2 tablet PO DAILY PRN PRN PRN Reason: Constipation Last Admin: 08/31/19 08:35 Dose: 2 tablet Documented by: Simethicone (Mylicon) 80 mg PO PCHS PRN PRN Reason: Indigestion/Stomach pain Sodium Chloride () 10 - 40 ml IV X1 PRN PRN Reason: SALINE FLUSH Last Admin: 08/30/19 10:09 Dose: 10 ml Documented by: Sodium Chloride () 5 - 15 ml IV UD PRN PRN Reason: SALINE FLUSH Medical Necessity - Tobacco Use Smoking Status: Never smoker Assessment/Plan All Active Problems (Last Reviewed 08/23/19 @ 09:04 by Jane Murphy) SROM (spontaneous rupture of membranes) (Acute) Vaginal delivery (Acute) Uterine atony, , without hemorrhage (Acute) Influenza vaccination declined by caregiver (Acute) Genital HSV (Acute) Supervision of normal (Acute) (Acute) HSV (herpes simplex virus) infection (Resolved) Low lying placenta nos or without hemorrhage, third trimester (Resolved) Marginal placenta previa (Resolved) doing well no complaints pain controlled no CP SOB N V ambulating well tolerating po lochia moderate, going well
--- NOTE | 2019-08-31 22:26 | DCINST_ITS ---
Discharge Diet: No Restrictions Discharge Activity: Return to Normal Activity, May not drive while taking narcotic pain medications., May Shower May resume sexual activity in: 4-6 weeks Call your doctor if your incision/area has: Continuous Slow Oozing, Sudden Increased Bleeding, Increased Pain/ Swelling, Increased Redness, Foul Smelling Discharge Additional Instructions: If you experience any of the following, contact your healthcare provider. * Bleeding that soaks a pad every hour for 2 hours * Fever 100.4 or higher * Unrelieved incision or abdominal pain * Swelling, redness, discharge or bleeding from your incision or episiotomy site * Your incision begins to separate * Problems urinating (including inability to urinate or burning while urinating). * Visual changes * Severe headache * Flu-like symptoms * Pain or redness in one of both of your breasts * Pain, warmth, tenderness or swelling in your legs, especially the calf area * Frequent nausea and vomiting * Symptoms of depression or anxiety If you experience any of the following, call 911 or go to the nearest Emergency Room. * Chest pain * Problems breathing * Seizure activity * Partial or complete paralysis of a body part, slurred speech, weakness or drooping of the face, or a sudden inability to walk or hold your balance Allergies/Adverse Reactions: Allergies sulfamethoxazole [From ] Allergy (Verified 08/23/19 09:03) Rash trimethoprim [From ] Allergy (Verified 08/23/19 09:03) Rash Medications to take at Discharge vitamin#30 30 mg iron-10 mg iron-folic acid 1 mg-omg3 capsule 1 cap PO DAILY cap 05/15/19 Valacyclovir HCl [Valacyclovir] 500 mg PO DAILY 08/30/19 Please Follow Up With: Christina Arias MD - [phone] When: Call to make an appointment with your doctor in 6 weeks. If you had elevated Blood pressure or 4th degree laceration you will need to be seen in 2 weeks. Primary Care Physician: Care Physician,No Primary [Primary Care Provider] - Test Results: Test results from this visit will be discussed in further detail at your follow- up appointment, if applicable.
[2019-09-01 02:00] VITALS: BP 102/58; PULSE 80; RESP 16; TEMP 36.6
--- NOTE | 2019-09-01 08:26 | PCM.PN.OB ---
Patient Problems: Active and Suspected Problems (Last Reviewed 08/23/19 @ 09:04 by Jane Murphy) SROM (spontaneous rupture of membranes) (Acute) Vaginal delivery (Acute) Uterine atony, , without hemorrhage (Acute) Subjective: doing well no complaints pain controlled no CP SOB N V ambulating well tolerating po lochia moderate, going well - Physical Exam Vitals/I&O's: Vital Signs Temp Pulse Resp BP 97.8 F 80 16 102/58 L 09/01/19 02:00 09/01/19 02:00 09/01/19 02:00 09/01/19 02:00 Oxygen Delivery Method Room Air Weight: 160 lb Body Mass Index (BMI) 28.3 Intake and Output for Last 24 Hours 08/30/19 08/31/19 09/01/19 23:59 23:59 23:59 Intake Total 2500.83 / 2500.83 Output Total 3076 / 3076 45 / 45 Balance -575.17 / -575.17 -45 / -45 General: Alert, Oriented x3 Abdomen: Soft, Non Tender, Non-Distended, - - FF below U Current Medications Acetaminophen (Tylenol) 325 - 650 mg PO Q4H PRN PRN PRN Reason: Pain Score 1-3/10 Last Admin: 08/31/19 05:22 Dose: 650 mg Documented by: Acetaminophen (Tylenol) 1,000 mg PO Q8H PRN PRN PRN Reason: Pain Score 1-3/10 Al Hydroxide/Mg Hydroxide (Mylanta Ii) 15 - 30 ml PO Q4H PRN PRN PRN Reason: INDIGESTION Bisacodyl (Dulcolax) 10 mg RECTAL UD PRN PRN Reason: If no BM Citric Acid/Sodium Citrate (Bicitra) 30 ml PO X1 PRN PRN Reason: Section Dibucaine (Dibucaine) 1 applic TOPICAL TID PRN PRN; Protocol PRN Reason: Discomfort Hydrocortisone (Hytone) 1 applic TOPICAL TID PRN PRN; Protocol PRN Reason: Discomfort Lactated Ringer's () 500 mls @ 999 mls/hr IV .Q31M PRN PRN Reason: Epidural Lactated Ringer's () 500 mls @ 999 mls/hr IV .Q31M PRN PRN Reason: Corrective Measures Last Infusion: 08/30/19 02:15 Dose: Infused Documented by: Methylergonovine Maleate (Methergine) 0.2 mg IM X1 PRN PRN Reason: Excess bleeding/uterine atony Last Admin: 08/30/19 10:12 Dose: 0.2 mg Documented by: Nalbuphine HCl (Nubain) 5 - 10 mg IV Q3H PRN PRN PRN Reason: Pain Score 4-10/10 Last Admin: 08/30/19 07:17 Dose: 10 mg Documented by: Nalbuphine HCl (Nubain) 5 - 10 mg SC Q3H PRN PRN PRN Reason: Pain Score 4-10/10 Naproxen (Naprosyn) 500 mg PO Q8H PRN PRN PRN Reason: Pain Score 1-3/10 Last Admin: 08/30/19 23:43 Dose: 500 mg Documented by: Ondansetron HCl (Zofran) 4 mg IV Q4H PRN PRN PRN Reason: NAUSEA Last Admin: 08/30/19 07:17 Dose: 4 mg Documented by: Ondansetron HCl (Zofran) 4 mg IV Q4H PRN PRN PRN Reason: Nausea Oxycodone HCl (Oxyir) 5 - 10 mg PO Q4H PRN PRN PRN Reason: Pain Score 4-10/10 Prochlorperazine Edisylate (Compazine Iv) 10 mg IV Q6H PRN PRN PRN Reason: NAUSEA Senna/Docusate Sodium (Senokot-S, Mila-Colace) 1 - 2 tablet PO DAILY PRN PRN PRN Reason: Constipation Last Admin: 08/31/19 08:35 Dose: 2 tablet Documented by: Simethicone (Mylicon) 80 mg PO PCHS PRN PRN Reason: Indigestion/Stomach pain Sodium Chloride () 10 - 40 ml IV X1 PRN PRN Reason: SALINE FLUSH Last Admin: 08/30/19 10:09 Dose: 10 ml Documented by: Sodium Chloride () 5 - 15 ml IV UD PRN PRN Reason: SALINE FLUSH Medical Necessity - Tobacco Use Smoking Status: Never smoker Assessment/Plan All Active Problems (Last Reviewed 08/23/19 @ 09:04 by Jane Murphy) SROM (spontaneous rupture of membranes) (Acute) Vaginal delivery (Acute) Uterine atony, , without hemorrhage (Acute) Influenza vaccination declined by caregiver (Acute) Genital HSV (Acute) Supervision of normal (Acute) (Acute) HSV (herpes simplex virus) infection (Resolved) Low lying placenta nos or without hemorrhage, third trimester (Resolved) Marginal placenta previa (Resolved) s/p PPD # 2 1. routine post delivery care 2. breast feeding- support given 3. rh positive 4. rubella immune 5. Home today
[2019-09-01 08:27] VITALS: BP 112/70; PULSE 91; RESP 97; TEMP 37.3
[2019-09-01 08:40] VITALS: BP 104/61; PULSE 79; RESP 18; TEMP 37.6; O2SAT 97
== END 2019-09-01 14:15 | disposition home or self-care (01) | DRG 560 ==
PROVIDERS: Admitting Provider Obstetrics & Gynecology; Referring Provider Obstetrics & Gynecology; Visit Provider Obstetrics & Gynecology
DX: O42.92 Full-term premature rupture of membranes, unspecified as to length of time between rupture and onset of labor (principal); O75.89 Other specified complications of labor and delivery; O99.324 Drug use complicating childbirth; F12.90 Cannabis use, unspecified, uncomplicated; Z3A.39 39 weeks gestation of pregnancy; Z37.0 Single live birth; Z28.21 Immunization not carried out because of patient refusal
CPT/HCPCS: 59025; 59050; 80307; 85025; 86850; 86900; 86901; 99218; J7120; A4216; G0378; J2405

== ENCOUNTER 2021-08-14 23:02 | Emergency (ER) | payer OTHER, SELFPAY ==
[2021-08-14 23:05] VITALS: BP 126/84; PULSE 142; RESP 18; TEMP 37.8; O2SAT 94; BMI 21.2
[2021-08-14 23:07] VITALS: BP 126/84; PULSE 142; RESP 18; TEMP 37.8; O2SAT 94
[2021-08-14 23:32] LABS: Color, Urine Yellow (Yellow); Glucose, Dipstick Normal (Normal); Ketone-Dipstick 50 mg/dl (Negative); Leukocyte Esterase-Dipstick 500 /ul (Negative); Nitrite-Dipstick Positive (Negative); Occult Blood-Urine 250 /ul (Negative); Protein-Dipstick 100 mg/dl (Negative); Specific Gravity, Urine 1.015 (1.002-1.030); Urine Bilirubin Dipstick Negative (Negative); Urine Clarity Turbid (Clear); Urine Urobilinogen Normal (Normal)
[2021-08-14 23:33] LABS: Internal QC Validated? YES +Cl - CLEAR BKGD; Mucous, Urine 0 SEEN /hpf (<or=2+); Pregnancy, Urine Negative Negative
[2021-08-14] MEDS: Ondansetron 4 MG/2 ML Vial IV (23:40)
[2021-08-14] MEDS: 0.9% Normal Saline 1,000 ML 999 ML IV (23:40)
[2021-08-14] MEDS: Ceftriaxone 1 GM/50 ML BAG IV (23:46)
[2021-08-14 23:47] LABS: Bacteria 3+ /hpf (None Seen); Red Blood Cells-Urine 5-10 SEEN /hpf (0-5); Squamous Epithelial Cells - UA 0-5 SEEN /hpf (5-10); White Blood Cells >100 SEEN /hpf (0-5)
[2021-08-14 23:51] LABS: Absolute Lymphocyte Count 1.33 X10^3/uL (0.83-4.51); Absolute Neutrophil Count 13.6 X10^3/uL (2.0-7.7); Basophil# 0.02 X10^3/uL; Basophil% 0.1 % (0-1); Hematocrit 35.8 % (37-47); Hemoglobin 12.8 g/dL (12.0-15.0); Lymphocyte # 1.33 X10^3/ul (0.83-4.51); Lymphocyte % 7.4 % (19-41); Mean Corp Hgb Conc 35.8 g/dL (32-36); Mean Corpuscular Hgb 31.8 pg (27.0-32.0); Mean Corpuscular Volume 89.1 fL (81-99); Mean Platelet Vol. 9.9 fl (6.2-12.0); Monocyte# 2.84 X10^3/uL; Monocyte% 15.9 % (0-10); NRBC Flagged by Analyzer 0 % (0-5); Neutrophil # 13.57 X10^3/uL (2.7-7.7); Neutrophil % 75.9 % (47-70); POSITIVE DIFFERENTIAL YES; Platelet Count 285 K/mm3 (150-450); RBC Distribution Width CV 11.6 % (11.6-14.6); RBC Distribution Width SD 37.2 fl (35.1-43.9); Red Blood Count 4.02 M/mm3 (4.2-5.4); White Blood Count 17.9 K/mm3 (4.4-11.0)
[2021-08-14 23:57] LABS: Differential Indicated SCAN CRITERIA MET
[2021-08-15 00:15] LABS: Anion Gap 9 (5-15); BUN 11 mg/dL (7-18); BUN/Creat Ratio 13.2 RATIO (10-20); Calcium,Total 8.9 mg/dL (8.5-10.1); Chloride 97 mmol/L (98-107); Creatinine, Serum 0.83 mg/dL (0.55-1.02); EST Glomerular Filtration Rate 87 mL/min (>60); Est Glom Filt Rate - Afr Amer 105 mL/min (>60); Estimated Creatinine Clearance 83.48 ml/min; Glucose 128 mg/dL (74-106); Potassium 3.4 mmol/L (3.5-5.1); Sodium Level 133 mmol/L (136-145)
[2021-08-15] MEDS: Ibuprofen 600 MG Tablet PO (00:33)
[2021-08-15 01:55] VITALS: TEMP 36.9
[2021-08-15 01:55] LABS: Lactic Acid 0.8 mmol/L (0.4-1.9)
--- NOTE | 2021-08-15 02:16 | EX.ED.DYSGE1 ---
HPI History of Present Illness Chief Complaint: Flank Pain Narrative Narrative: Patient is a 26-year-old female who states for the past 5 to 7 days she has had urinary frequency. She states in the past 2 to 3 days she has developed a fever reaching 101 at home and today began with flank pain with bouts of nausea and vomit. She states that with the worsening symptoms she is concerned for worsening infection and therefore comes in for evaluation [facility] Medical History (Updated 08/15/21 @ 02:[address] Deepak Trent, DO) No significant medical problems Home Medications cephalexin 500 mg PO TID 10 Days #30 cap 08/15/21 [Rx Last Taken Unknown] ondansetron 4 mg PO Q8H PRN #21 tab 08/15/21 [Rx Last Taken Unknown] Allergy/AdvReac Type Severity Reaction Status Date / Time sulfamethoxazole Allergy Rash Verified 08/14/21 23:07 [From ] trimethoprim [From ] Allergy Rash Verified 08/14/21 23:07 Surgical History Inguinal hernia Social History (Updated 11/18/20 @ 09:11 by Sue Mccord NP, [employer]FORMATION [employer]) household members: family housing: house current occupational status: unemployed pets and animals: Yes Smoking Status: Never smoker second hand exposure: No alcohol intake: never substance use type: does not use seatbelt use: always do you feel safe at home: Yes additional social history: Spouse: Jose Rider: Bill CASTANEDA LEONEL ED Constitutional Constitutional ED: Reports chills and fever(s) ENT ENT ED: Denies sore throat Cardiovascular Cardiovascular: Denies chest pain Respiratory/Chest Respiratory/Chest: Denies cough or dyspnea Gastrointestinal Gastrointestinal: Reports abdominal pain, nausea and vomiting; Denies diarrhea Genitourinary Genitourinary ED: Reports dysuria and urinary frequency Musculoskeletal Musculoskeletal: Reports back pain; Denies myalgias Integumentary Denies rash Neurologic Neurologic: Denies headache(s) Hematologic/Lymphatic Hematologic/Lymphatic: Denies easy bleeding or easy bruising EXAM Physical Exam Const Vital Signs: 08/14/21 23:05 08/14/21 23:07 08/15/21 01:55 Temperature 100.1 F H 100.1 F H 98.4 F Temperature Source Oral Oral Oral Pulse Rate 142 H 142 H Respiratory Rate 18 18 Blood Pressure 126/84 H 126/84 H Blood Pressure Mean 98 98 Pulse Ox 94 94 Oxygen Delivery Method Room Air Room Air Positive well nourished and well developed General Appearance ED: well developed HEENT Reports moist mucous membranes Eyes PERRL and EOMs intact bilaterally Neck supple Resp normal respiratory effort and clear to auscultation bilaterally Cardio regular rate and regular rhythm GI normal to inspection, nondistended, normoactive bowel sounds, non-tender and non-distended Auscultation: normoactive bowel sounds Palpation: soft Back/Spine Back/Spine Narrative: Positive right CVA tenderness Extremity normal to inspection Neuro oriented x3 and CN's II-XII intact bilaterally Sensorium / Orientation: alert Psych mental status grossly normal Skin no rashes or lesions noted MDM MDM MDM Narrative Medical decision making narrative: Patient presented to the ER with a low-grade fever and her constellation of symptoms is concerning for UTI changing to pyelonephritis. With concern she will be becoming septic with this infection basic blood work with a lactic acid was ordered. White count is elevated at 17.9 but lactic is normal. Urine does show changes consistent with urinary tract infection but otherwise there is no signs of kidney damage. Therefore at this time patient has not been on antibiotics so she is not failed outpatient therapy and with a normal lactic I do not feel there is need for inpatient IV antibiotics and she can be discharged at this time. Lab Data Attestation: I reviewed the patient's lab results. Labs: Laboratory Results - last 24 hr 08/14/21 08/14/21 08/14/21 23:03 23:37 23:37 WBC 17.9 H RBC 4.02 L Hgb 12.8 Hct 35.8 L MCV 89.1 MCH 31.8 MCHC 35.8 RDW Std Deviation 37.2 RDW Coeff of Catie 11.6 Plt Count 285 MPV 9.9 Immature Gran % (Auto) 0.700 Neut % (Auto) 75.9 H Lymph % (Auto) 7.4 L [place] % (Auto) 15.9 H Eos % (Auto) 0.0 Baso % (Auto) 0.1 Absolute Neuts (auto) 13.6 H Absolute Lymphs (auto) 1.33 Nucleated RBC % 0 [address] Path Review May foll Sodium 133 L Potassium 3.4 L Chloride 97 L Carbon Dioxide 27.0 Anion Gap 9 BUN 11 Creatinine 0.83 Estim Creat Clear Calc 83.48 Est GFR (MDRD) Af Amer 105 Est GFR (MDRD) Non-Af 87 BUN/Creatinine Ratio 13.2 Glucose 128 H Lactic Acid Calcium 8.9 Urine Color Yellow Urine Clarity Turbid Urine pH 6.0 Ur Specific [place] 1.015 Urine Protein 100 H Urine Glucose (UA) Normal Urine Ketones 50 H Urine Occult Blood 250 H Urine Nitrite Positive H Urine Bilirubin Negative Urine Urobilinogen Normal Ur Leukocyte Esterase 500 H Urine RBC 5-10 SEEN Urine WBC >100 SEEN Ur Squamous Epith Cells 0-5 SEEN Urine Bacteria 3+ Urine Mucus 0 SEEN Urine Test Negative 08/14/21 08/15/21 23:37 01:03 WBC RBC Hgb Hct MCV MCH MCHC RDW Std Deviation RDW Coeff of Catie Plt Count MPV Immature Gran % (Auto) Neut % (Auto) Lymph % (Auto) [place] % (Auto) Eos % (Auto) Baso % (Auto) Absolute Neuts (auto) Absolute Lymphs (auto) Nucleated RBC % Diff Path Review Sodium Potassium Chloride Carbon Dioxide Anion Gap BUN Creatinine Estim Creat Clear Calc Est GFR (MDRD) Af Amer Est GFR (MDRD) Non-Af BUN/Creatinine Ratio Glucose Lactic Acid Cancelled 0.8 Calcium Urine Color Urine Clarity Urine pH Ur Specific [place] Urine Protein Urine Glucose (UA) Urine Ketones Urine Occult Blood Urine Nitrite Urine Bilirubin Urine Urobilinogen Ur Leukocyte Esterase Urine RBC Urine WBC Ur Squamous Epith Cells Urine Bacteria Urine Mucus Urine Test Discharge Plan Triage Chief Complaint: Flank Pain ED Provider: Deepak Trent Dx/Rx/DC Orders Clinical Impression: Acute pyelonephritis Instructions: ED Pyelonephritis, Female (Adult) Prescriptions: New ondansetron 4 mg tablet,disintegrating 4 mg PO Q8H PRN (Reason: nausea and vomiting) Qty: 21 RF: 0 cephalexin 500 mg capsule 500 mg PO TID 10 Days Qty: 30 RF: 0 Primary Care Provider: Care Physician,No Primary Referrals: Yin Mercado MD [STAFF PHYSICIAN] - 3-5 Days if not improving Care Physician,No Primary [Primary Care Provider] - Disposition Disposition: Home, Self Care
[2021-08-15 02:38] VITALS: BP 124/60; PULSE 80; RESP 16
[2021-08-15 15:38] LABS: Pathologist Review Reviewed
== END 2021-08-15 02:38 | disposition home or self-care (01) ==
PROVIDERS: Emergency Provider Emergency Medicine
DX: N10 Acute pyelonephritis (principal)
CPT/HCPCS: 80048; 81001; 81025; 83605; 85025; 87077; 87086; 87088; 87186; 96365; 96375; 99283; J7030; J7050; A4216; J2405

== ENCOUNTER 2021-11-06 14:28 | Outpatient (CLI) | payer OTHER, MEDICAID, SELFPAY ==
[2021-11-06 16:09] LABS: Amphetamine Urine VISTA NEGATIVE (<1000 ng/mL); Barbiturate Urine VISTA NEGATIVE (< 200 ng/mL); Benzodiazepine Urine VISTA NEGATIVE (< 200 ng/mL); Cocaine Urine VISTA NEGATIVE (< 300 ng/mL); Ecstacy Urine VISTA NEGATIVE (< 500 ng/mL); Methadone Urine VISTA NEGATIVE (< 300 ng/mL); PCP Urine VISTA NEGATIVE (< 25 ng/mL); THC Urine VISTA NEGATIVE (< 50 ng/mL); Vista UDS pH Range 6
[2021-11-10 09:07] LABS: Chlamydia By Nucleic Acid AMP Negative (Negative)
[2021-11-10 14:30] LABS: Gonococcus By Nucleic Acid AMP Negative (Negative)
[2021-11-12 18:10] LABS: HPV Reflexed? NOT INDICATED
== END 2021-11-06 23:59 | disposition short-term general hospital (02) ==
LOC: LABSPEC 14:33
PROVIDERS: Visit Provider Obstetrics & Gynecology
DX: Z34.90 Encounter for supervision of normal pregnancy, unspecified, unspecified trimester (principal)
CPT/HCPCS: 80307; 87086; 87088; 87491; 87591; 88175; G0145

== ENCOUNTER 2021-12-05 15:14 | Outpatient (CLI) | payer OTHER, MEDICAID, SELFPAY ==
[2021-12-05 16:07] LABS: Absolute Lymphocyte Count 2.12 X10^3/uL (0.83-4.51); Absolute Neutrophil Count 6.1 X10^3/uL (2.0-7.7); Basophil# 0.02 X10^3/uL; Basophil% 0.2 % (0-1); Eosinophil# 0.05 X10^3/uL; Eosinophils% 0.6 % (0-5); Hematocrit 37.2 % (37-47); Hemoglobin 13.2 g/dL (12.0-15.0); Lymphocyte # 2.12 X10^3/ul (0.83-4.51); Lymphocyte % 23.8 % (19-41); Mean Corp Hgb Conc 35.5 g/dL (32-36); Mean Corpuscular Hgb 31.5 pg (27.0-32.0); Mean Corpuscular Volume 88.8 fL (81-99); Mean Platelet Vol. 9.9 fl (6.2-12.0); Monocyte# 0.58 X10^3/uL; Monocyte% 6.5 % (0-10); NRBC Flagged by Analyzer 0 % (0-5); Neutrophil # 6.09 X10^3/uL (2.7-7.7); Neutrophil % 68.5 % (47-70); Platelet Count 321 K/mm3 (150-450); RBC Distribution Width CV 11.8 % (11.6-14.6); RBC Distribution Width SD 37.9 fl (35.1-43.9); Red Blood Count 4.19 M/mm3 (4.2-5.4); White Blood Count 8.9 K/mm3 (4.4-11.0)
[2021-12-07 15:31] LABS: HIV - WCH Non-Reactive (Nonreactive); Hepatitis B Surface Antigen Non-Reactive (Nonreactive); Hepatitis C Antibody Non-Reactive (Nonreactive); Rubella IgG Reactive (Nonreactive); Syphilis Antibodies Non-reactive
== END 2021-12-05 23:59 | disposition home or self-care (01) ==
LOC: LAB 15:22
PROVIDERS: Visit Provider Obstetrics & Gynecology
DX: Z34.90 Encounter for supervision of normal pregnancy, unspecified, unspecified trimester (principal)
CPT/HCPCS: 36415; 85025; 86703; 86762; 86780; 86803; 86850; 86900; 86901; 87340

== ENCOUNTER → 2022-03-18 | Outpatient (CLI) | payer MEDICAID, SELFPAY ==
[2022-03-18 08:54] LABS: Absolute Lymphocyte Count 2.31 X10^3/uL (0.83-4.51); Absolute Neutrophil Count 6.9 X10^3/uL (2.0-7.7); Basophil# 0.02 X10^3/uL; Basophil% 0.2 % (0-1); Eosinophil# 0.11 X10^3/uL; Eosinophils% 1.1 % (0-5); Hematocrit 31.9 % (37-47); Hemoglobin 10.7 g/dL (12.0-15.0); Lymphocyte # 2.31 X10^3/ul (0.83-4.51); Lymphocyte % 23.3 % (19-41); Mean Corp Hgb Conc 33.5 g/dL (32-36); Mean Corpuscular Hgb 31.7 pg (27.0-32.0); Mean Corpuscular Volume 94.4 fL (81-99); Mean Platelet Vol. 9.9 fl (6.2-12.0); Monocyte# 0.52 X10^3/uL; Monocyte% 5.2 % (0-10); NRBC Flagged by Analyzer 0 % (0-5); Neutrophil # 6.86 X10^3/uL (2.7-7.7); Neutrophil % 69.3 % (47-70); Platelet Count 313 K/mm3 (150-450); RBC Distribution Width CV 12.5 % (11.6-14.6); RBC Distribution Width SD 43.7 fl (35.1-43.9); Red Blood Count 3.38 M/mm3 (4.2-5.4); White Blood Count 9.9 K/mm3 (4.4-11.0)
[2022-03-18 09:14] LABS: Glucose Challenge Gest 1H 50g 131 mg/dL (70-140)
== END | disposition home or self-care (01) ==
LOC: LAB 08:17
PROVIDERS: Referring Provider Obstetrics & Gynecology; Visit Provider Obstetrics & Gynecology
DX: Z34.90 Encounter for supervision of normal pregnancy, unspecified, unspecified trimester (principal)
CPT/HCPCS: 36415; 82950; 85025

== ENCOUNTER → 2022-05-15 | Outpatient (CLI) | payer MEDICAID, SELFPAY | END | disposition home or self-care (01) | LOC: LABSPEC 17:04 | PROVIDERS: Visit Provider Obstetrics & Gynecology | DX: Z34.90 Encounter for supervision of normal pregnancy, unspecified, unspecified trimester (principal) | CPT/HCPCS: 87077; 87081; 87186 ==

== ENCOUNTER 2022-06-06 04:41 | Inpatient (IN) | payer MEDICAID, SELFPAY ==
[2022-06-06] VITALS (28 sets, daily range): BP systolic 109–149; BP diastolic 66–89; PULSE 33–105; RESP 16; TEMP 36.2–36.7; O2SAT 81–98; BMI 28.2
[2022-06-06] MEDS: Lactated Ringers 1,000 ML 50 ML IV (05:35)
--- NOTE | 2022-06-06 05:41 | HP.PCM.OB_ITS ---
HPI - General General Date of Admission: 06/06/22 HPI Narrative AALIYAH LOPEZ, is a 26 F who presents IAL 4 cm regular ctx gbs pos will give penicillin no vb lof admits good fm Maternal Data Information SAUL Calculator Estimated Delivery Date Method Current WG Current Estimate 06/07/22 LMP (Certain) 39w 6d PFSH PFSH Medical History Anemia No significant medical problems Positive GBS test Allergy/AdvReac Type Severity Reaction Status Date / Time sulfamethoxazole Allergy Rash Verified 06/06/22 05:09 [From ] trimethoprim [From ] Allergy Rash Verified 06/06/22 05:09 Surgical History Inguinal hernia Social History household members: family housing: house current occupational status: unemployed pets and animals: Yes Smoking Status: Never smoker second hand exposure: No alcohol intake: never substance use type: does not use seatbelt use: always do you feel safe at home: Yes additional social history: Xarwhypt-YHG-Swr History 2 Elective abortions Hx Para 1 Spontaneous abortions Hx # Term Pregnancies Ectopic pregnancies Hx # Pregnancies Multiple births # of living children 1 Past Pregnancies Del. Date Name GA/Weeks Outcome Route Bth Weight Gen Labor Lgth Anesthesia Del Locatn Provider FOB 08/30/19 Seun 39 live - full term Male none [facility] Visit Details Expected Delivery Route/Plan Labor Preferences- CB/BF classes: no labor support person: Fantasma labor intervention preferences: [] pain management options preferred: limited intervention cut cord/dad catch: maybe : yes PP control planned: discussed discussed possible routes of delivery and associated risks: [] special requests: [] Plans Covid status: pos in the past, counseled regarding risk of covid in vs vaccination and declined vaccination Flu vaccine: decines Tdap vaccine: declines Rhogam: NA LARC form signed: yes Problem list reviewed and updated with the most current plan of care details and appropriate orders placed. Relevant counseling for the gestational age provided. Continue routine care and follow up unless otherwise noted in visit notes/problem list details OB Flowsheet Initial Weight: 125 lb Date -?-?-?-?-?-?-?-?-?-?-?-?- EGA Weight BP Urine Prot -?-?-?-?-?-?-?-?-?-?-?-?- Glucose FHR FuHt Pres Dilation -?-?-?-?-?-?-?-?-?-?-?-?- Effaced St Visit Note 11/06/21 -?-?-?-?-?-?-?-?-?-?-?-?- 9w 4d 125 lb 6 oz (+6 oz) 126/82 -?-?-?-?-?-?-?-?-?-?-?-?- 160 -?-?-?-?-?-?-?-?-?-?-?-?- SM- CRL cons wit h LMP SM- CRL 2.17cm cons with LMP 12/05/21 -?-?-?-?-?-?-?-?-?-?-?-?- 13w 5d 130 lb (+5 lb) 118/80 Negative -?-?-?-?-?-?-?-?-?-?-?-?- Negative 151 -?-?-?-?-?-?-?-?-?-?-?-?- JV- no lof, vagi nal bleeding, or cramping. fht confirmed on ultrasound. pt informed that mfm will contact them for anatomy scan at 18 weeks 01/02/22 -?-?-?-?-?-?-?-?-?-?-?-?- 17w 5d 134 lb (+9 lb) 102/69 Negative -?-?-?-?-?-?-?-?-?-?-?-?- Negative 150 -?-?-?-?-?-?-?-?-?-?-?-?- SM- no vb crampi ng 01/30/22 -?-?-?-?-?-?--?-?-?-?-?-?- 21w 5d 137 lb 4 oz (+12 lb 4 oz) 112/72 Negative -?-?-?-?-?-?-?-?-?-?-?-?- Negative 143 -?-?-?-?-?-?-?-?-?-?-?-?- JV- no lof, vb o r cramping, + fm. no complaints. 02/25/22 -?-?-?-?-?-?-?-?-?-?-?-?- 25w 3d 145 lb 8 oz (+20 lb 8 oz) 102/66 -?-?-?-?-?-?-?-?-?-?-?-?- 137 -?-?-?-?-?-?-?-?-?-?-?-?- JV- pt did not l eave urine today no complaints. glucola ordered 03/18/22 -?-?-?-?-?-?-?-?-?-?-?--?- 28w 3d 147 lb 4 oz (+22 lb 4 oz) 120/70 Negative -?-?-?-?-?-?-?-?-?-?-?-?- Negative 145 27 -?-?-?-?-?-?-?-?-?-?-?-?- JV- declines TDa p, glucola done today. no lof, vaginal bleeding, or dec fm. 04/01/22 -?-?-?-?-?-?-?-?-?-?-?-?- 30w 3d 148 lb 4 oz (+23 lb 4 oz) 110/72 Negative -?-?-?-?-?-?-?-?-?-?-?-?- Negative 142 30 -?-?-?-?-?-?-?-?-?-?-?-?- JV- glucola norm al cbc show mild anemia 04/17/22 -?-?-?-?-?-?-?-?-?-?-?-?- 32w 5d 151 lb 4 oz (+26 lb 4 oz) 114/62 Negative -?-?-?-?-?-?-?-?-?-?-?-?- Negative 154 32 -?-?-?-?-?-?-?-?-?-?-?-?- JV- no lof, vaginal bleeding, or dec fm. asking for another ultrasound. will consider 36 week growth for maternal nervousness. 04/29/22 -?-?-?-?-?-?-?-?--?-?-?-?- 34w 3d 155 lb (+30 lb) 126/84 Negative -?-?-?-?-?-?-?-?-?-?-?-?- Negative 136 33 -?-?-?-?-?-?-?-?-?-?-?-?- MH-No VB, LOF. G ood FM. No CTX 05/15/22 -?-?-?-?-?-?-?-?-?-?-?-?- 36w 5d 156 lb 6.4 oz (+31 lb 6.4 oz) 93/63 Negative -?-?-?-?-?-?-?-?-?-?--?-?- Negative 140 36 Cephalic 1 -?-?-?-?-?-?-?-?-?-?-?-?- 40 -2 SM- no vb lof good fm no regualr ctx gbs done 05/22/22 -?-?-?-?-?-?-?-?-?-?-?-?- 37w 5d 157 lb 4 oz (+32 lb 4 oz) 118/60 Negative -?-?-?-?-?-?-?-?-?-?-?-?- Negative 140 37 Cephalic 2 -?-?-?-?-?-?-?-?-?-?-?-?- 40 -2 SM- co con stant cramping no vb lof good fm 05/29/22 -?-?-?-?-?-?-?-?-?-?-?-?- 38w 5d 158 lb 4 oz (+33 lb 4 oz) 106/60 Trace -?-?-?-?-?-?-?-?-?-?-?-?- Negative 141 38 Cephalic 2 -?-?-?-?-?-?-?-?-?-?-?-?- 50 -2 JV- no lof , vaginal bleeding, or dec fm. + GBS 06/05/22 -?-?-?-?-?-?-?-?-?-?-?-?- 39w 5d 160 lb 2 oz (+35 lb 2 oz) 108/73 Negative -?-?-?-?-?-?-?-?-?-?-?-?- Negative 140 39 Cephalic 3 -?-?-?-?-?-?-?-?-?-?-?-?- 60 -1 SM- no vb lof good fm no regular ctx membranes swept IOL wednesday06/06/22 -?-?-?-?-?-?-?-?-?-?-?-?- 39w 6d 159 lb 3.2 oz (+34 lb 3.2 oz) 119/77 -?-?-?-?-?-?-?-?-?-?-?-?- -?-?-?-?-?-?-?-?-?-?-?-?- NST FHR Rate Baby A Baseline: 140 Variability:: Moderate Accelerations:: 15 x 15 Decelerations:: Late (isolated) NST Reactive:: Yes FHR Category:: Category I and Category II Uterine Activity:: q3-5 ROS Constitutional Constitutional: Reports systems reviewed and no addt'l complaints, except as documented ENT HEENT: Reports systems reviewed and no addt'l complaints, except as documented Cardiovascular Cardiovascular: Reports systems reviewed and no addt'l complaints, except as documented Respiratory/Chest Respiratory/Chest: Reports systems reviewed and no addt'l complaints, except as documented Gastrointestinal Gastrointestinal: Reports systems reviewed and no addt'l complaints, except as documented and nausea; Denies abdominal pain Genitourinary Genitourinary: Reports systems reviewed and no addt'l complaints, except as documented, contractions Details: present and frequency (regular ) and movement Details: present Musculoskeletal Musculoskeletal: Reports systems reviewed and no addt'l complaints, except as documented Integumentary Integumentary: Reports as per HPI Neurologic Neurologic: Reports systems reviewed and no addt'l complaints, except as documented Endocrine Endocrinology: Reports systems reviewed and no addt'l complaints, except as documented Vital Signs Vital Signs Vital Signs: 06/06/22 05:02 06/06/22 05:02 06/06/22 05:02 Temperature Temperature Source Temporal Pulse Rate 83 Blood Pressure 119/77 BP Systolic 119 BP Diastolic 77 06/06/22 05:02 Temperature 97.2 F L Temperature Source Pulse Rate Blood Pressure BP Systolic BP Diastolic Weight Weight: 159 lb 3.2 oz Body Mass Index (BMI) 28.2 Physical Exam Const alert, oriented x3 and healthy appearing Constitutional Narrative: uncomfortable with contractions HEENT normocephalic and moist oral mucous membranes Head and Scalp: atraumatic Neck full ROM, no lymphadenopathy, supple and thyroid normal General: trachea midline Thyroid: thyroid normal Lymph Lymphatic: no lymphadenopathy noted Chest inspection of chest normal Resp normal respiratory effort Cardio regular rate GI normal to inspection, nondistended, normoactive bowel sounds, soft to palpation and non-tender Inspection: gravid external exam normal Bimanual Exam - Vag & Uterus: uterus non-tender Manual OB Exam: estimated gestational size appropriate, presentation cephalic, dilated, effaced and station Extremity normal to inspection General Extremity: Negative for edema Skin no rashes or lesions noted Neuro deep tendon reflexes 2+ bilaterally Motor Exam: strength 5/5 throughout and clonus absent Psych mental status grossly normal Labs Labs Labs: Blood Type B POSITIVE Antibody Screen NEGATIVE Hct 31.9 % (37-47) L Hgb 10.7 g/dL (12.0-15.0) L Obstetrics US Syphilis Total Ab Non-reactive Rubella IgG Antibody Reactive (Nonreactive) Hep Bs Antigen Non-Reactive (Nonreactive) Chlamydia DNA (TRES) Negative (Negative) Neisseria gonorrhoeae DNA (TRES) Negative (Negative) HIV 1&2 Antibody Non-Reactive (Nonreactive) Glucose 1 Hr 50 gm 131 mg/dL (70-140) Rhogam given: No Assessment & Plan (1) Positive GBS test: COMMENT: PCN in labor (2) Anemia: COMMENT: add supplement (3) : QUALIFIERS: Weeks of gestation: 39 weeks Qualified Code(s): Z3A.39 - 39 weeks gestation of COMMENT: anatomy nl, genetic, carrier, and ntd screening declined. nml anatomy scan (4) Supervision of normal : COMMENT: PRR SAUL 06/07/22 bertrand BECKER Max Boyfriend Fantasma (his first) (5) Genital HSV: COMMENT: acyclovir at 36 weeks (6) Active labor at term: PLAN: Plan Patient presents IAL, plan expectant management for , pitocin/AROM PRN if needed. Pain management: prefers minimal intervention. GBS positive plan IV PCN. Management of any complications: none I have reviewed the [facility] and made any clinically relevant updates.
[2022-06-06 05:47] LABS: Absolute Lymphocyte Count 2.49 X10^3/uL (0.83-4.51); Absolute Neutrophil Count 11.9 X10^3/uL (2.0-7.7); Basophil# 0.04 X10^3/uL; Basophil% 0.3 % (0-1); Eosinophil# 0.12 X10^3/uL; Eosinophils% 0.8 % (0-5); Hematocrit 35.2 % (37-47); Hemoglobin 11.4 g/dL (12.0-15.0); Lymphocyte # 2.49 X10^3/ul (0.83-4.51); Lymphocyte % 15.7 % (19-41); Mean Corp Hgb Conc 32.4 g/dL (32-36); Mean Corpuscular Hgb 31.1 pg (27.0-32.0); Mean Corpuscular Volume 96.2 fL (81-99); Mean Platelet Vol. 10.1 fl (6.2-12.0); Monocyte# 1.08 X10^3/uL; Monocyte% 6.8 % (0-10); NRBC Flagged by Analyzer 0 % (0-5); Neutrophil # 11.94 X10^3/uL (2.7-7.7); Neutrophil % 75.5 % (47-70); Platelet Count 221 K/mm3 (150-450); RBC Distribution Width CV 14.3 % (11.6-14.6); RBC Distribution Width SD 50.4 fl (35.1-43.9); Red Blood Count 3.66 M/mm3 (4.2-5.4); White Blood Count 15.8 K/mm3 (4.4-11.0)
[2022-06-06] MEDS: 0.9% Saline Lock 10 ML Syringe IV ×2 (06:40→10:13)
[2022-06-06] MEDS: Penicillin G 3,000,000 Units 50 ML 100 UNITS IV (10:13)
[2022-06-06] MEDS: Ondansetron 4 MG/2 ML Vial IV (10:26)
[2022-06-06] MEDS: Oxytocin 30 units/NS 500 ml 30 UNITS/500 ML IV.SOLN 334 UNITS IV (12:07)
[2022-06-06] MEDS: Methylergonovine 0.2 MG/ML Ampul IM (12:10)
--- NOTE | 2022-06-06 12:31 | OP.PCM_ITS ---
Assessment & Plan (1) Active labor at term: (2) Positive GBS test: COMMENT: PCN in labor (3) Anemia: COMMENT: add supplement (4) : QUALIFIERS: Weeks of gestation: 39 weeks Qualified Code(s): Z3A.39 - 39 weeks gestation of COMMENT: anatomy nl, genetic, carrier, and ntd screening declined. nml anatomy scan (5) Supervision of normal : COMMENT: PRR SAUL 06/07/[address] Max Boyfriend Fantasma (his first) (6) Genital HSV: COMMENT: acyclovir at 36 weeks (7) Vaginal delivery: COMMENT: SM [address] (8) Atony of uterus without hemorrhage: COMMENT: pitocin massage methergine Maternal Data Information SAUL Calculator Estimated Delivery Date Method Current WG Current Estimate 06/07/22 LMP (Certain) 39w 6d Vaginal Delivery Operative Information Date of Procedure: 06/06/22 Pre-Operative Diagnosis: IAL Post-Operative Diagnosis: same Surgery / Procedure Performed: Spontaneous Vaginal Delivery Type of Anesthesia: Local with 1% Lidocaine Special Medications: none Estimated Blood Loss: 500 Fluids Replaced: crystalloid Findings Description of Procedure: Patient began pushing and delivered the head in the BLU presentation. The head was delivered atraumatically . The anterior and posterior shoulders delivered without complication followed by the rest of the infant and the was placed on the maternal abdomen. Delayed cord clamping was employed for approximately 60 seconds. Cord was clamped and cut and gentle traction was applied to the cord and the placenta delivered spontaneously immediately following it was noted to be intact with three-vessel cord. The perineum and vagina were inspected and noted to have a first degre laceratio nwhich was repaired in the usual fashion afte rinjecting with lidocaine and using 3-0 rapide. EBL was 500 with mild atony. Patient and infant tolerated delivery well. Presentation: BLU Amniotic Membrane Rupture Type: Artificial Amniotic Fluid Description: Clear Placental Delivery Description: Spontaneous Placenta Disposition: [facility] Cord Vessel Description: 3 Vessels Cord Entanglement: None A Gender: Male Delayed Cord Clamping: Yes Post Vaginal Delivery Medications Given After Delivery: IV Pitocin Episiotomy Description: None Laceration: Perineal Extension/lac and 1st degree Complication Complications: None Procedures Urinary/Genital [id number]: [id number] Vaginal Delivery+PP Care([facility])
--- NOTE | 2022-06-06 12:34 | DCINST_ITS ---
Discharge Instructions Diet Discharge Diet: No restrictions Activity Discharge Activity: Return to Normal Activity, May Drive, May Shower and May Take a Tub Bath (in 4 weeks) May resume sexual activity in: 6-8 weeks (after seen by OB provider) Weight Bearing Status: Full weight bearing Lifting Restrictions: none Dressing / Incision Call your doctor if you observe: Fever of 101 or Higher, Inability to urinate, Using more than 1 pad per hour (for more than 2 hours in a row or more), Shortness of breath, Dizziness, Chest pain and - (headache not controlled with tylenol, change in vision) Follow Up Care When: in 6 weeks for visit, call the office to make the appointment. If you had elevated blood pressures call the office to be seen within 1 week. Test Results: Test results from this visit will be discussed in further detail at your follow- up appointment, if applicable. Discharge Plan Admission Admit Date/Time: 06/06/22 04:41 Attending Provider: Chrisitna Arias Primary Care Provider: Care Physician,Lisa Primary Discharge Orders/Prescriptions Referrals / Follow Up: Care Physician,No Primary [Primary Care Provider] - Disposition Disposition (needs filled in before D/C Order can be placed): Home, Self Care
[2022-06-06] MEDS: Naproxen 500 MG Tablet PO (13:32)
[2022-06-06] MEDS: Acetaminophen 500 MG Tablet 1000 MG PO (15:38)
[2022-06-07] VITALS (8 sets, daily range): BP systolic 106–114; BP diastolic 57–68; PULSE 77–92; RESP 14–18; TEMP 36.6–36.8; O2SAT 97–98
[2022-06-07] MEDS: Acetaminophen 500 MG Tablet 1000 MG PO ×2 (00:44→07:45)
--- NOTE | 2022-06-07 07:51 | PCM.PN.OB ---
Subjective Subjective Patient doing well without complaints. Tolerating PO. Ambulating and voiding without difficulty. feeding well. Denies chest pain, shortness of breath, calf pain/swelling, fevers, chills, lightheadedness. Objective Data Objective Data Vital Signs: Vital Signs Temp Pulse Resp BP Pulse Ox O2 Del Method 98.2 F 78 16 106/57 L 98 Room Air 06/07/22 04:33 06/07/22 04:33 06/07/22 04:33 06/07/22 04:33 06/07/22 04:33 06/07/22 04:33 Oxygen Delivery Method Room Air Weight: 159 lb 3.2 oz Body Mass Index (BMI) 28.2 Intake & Output: Intake and Output for Last 24 Hours 06/05/22 06/06/22 06/07/22 23:59 23:59 23:59 Intake Total 980 / 980 Balance 980 / 980 Lab / Micro Data Result Diagrams: 06/06/22 05:35 Micro: Microbiology 06/06/22 05:35 Nasal Secretion SARS-CoV-2 Antigen (Rapid) - Final ROS Constitutional Constitutional: Reports systems reviewed and no addt'l complaints, except as documented Cardiovascular Cardiovascular: Reports systems reviewed and no addt'l complaints, except as documented Respiratory/Chest Respiratory/Chest: Reports systems reviewed and no addt'l complaints, except as documented Gastrointestinal Gastrointestinal: Reports systems reviewed and no addt'l complaints, except as documented Physical Exam Const alert, oriented x3 and no apparent distress HEENT Head and Scalp: atraumatic Resp normal respiratory effort GI soft to palpation and non-tender Bimanual Exam - Vag & Uterus: uterus non-tender Uterus Palpation: uterus fundus firm (below Umbilicus) Assessment & Plan (1) Atony of uterus without hemorrhage: COMMENT: pitocin massage methergine (2) Vaginal delivery: COMMENT: SM boy [address] 39 PLAN: Plan s/p PPD # 1 1. routine post delivery care 2. breast feeding- support given 3. rh positive 4. rubella immune
[2022-06-07] MEDS: Naproxen 500 MG Tablet PO (13:11)
== END 2022-06-07 14:50 | disposition home or self-care (01) | DRG 560 ==
LOC: WPOUT 04:43 → WP 04:43
PROVIDERS: Admitting Provider Obstetrics & Gynecology; Visit Provider Obstetrics & Gynecology
DX: O76 Abnormality in fetal heart rate and rhythm complicating labor and delivery (principal); Z37.0 Single live birth; O62.2 Other uterine inertia; O70.0 First degree perineal laceration during delivery; O99.02 Anemia complicating childbirth; O99.824 Streptococcus B carrier state complicating childbirth; Z3A.39 39 weeks gestation of pregnancy; Z28.310 Unvaccinated for COVID-19; Z28.21 Immunization not carried out because of patient refusal
CPT/HCPCS: 59025; 59050; 85025; 86850; 86900; 86901; 87426; 99218; J7120; A4216; G0378; J2405

== ENCOUNTER → 2023-12-06 | Outpatient (CLI) | payer MEDICAID, SELFPAY ==
[2023-12-08 08:11] LABS: Chlamydia By Nucleic Acid AMP Negative (Negative); Gonococcus By Nucleic Acid AMP Negative (Negative)
== END | disposition home or self-care (01) ==
LOC: LABSPEC 12:06
PROVIDERS: Referring Provider Nurse Practitioner Women's Health; Visit Provider Nurse Practitioner Women's Health
DX: N93.9 Abnormal uterine and vaginal bleeding, unspecified (principal)
CPT/HCPCS: 87491; 87591

== ENCOUNTER → 2024-07-24 | Outpatient (CLI) | payer MEDICAID, SELFPAY ==
--- NOTE | 2024-07-24 16:27 | US_ITS ---
STUDY: THYROID ULTRASOUND REASON FOR EXAM: Female, 29 years old. Thyromegaly TECHNIQUE: Ultrasound evaluation of the thyroid was performed with real-time and static tierney-scale imaging. COMPARISON: None. FINDINGS: RIGHT LOBE: The right lobe of the thyroid gland measures 4.7 cm x 1.5 cm x 1.3 cm. There is a homogeneous echotexture. There is a 5 mm x 3 mm x 3 mm hypoechoic solid nodule in the midpole. Yearly follow-up recommended. LEFT LOBE: The left lobe of the thyroid gland measures 4.2 cm x 1.3 cm x 1.1 cm. There is a homogeneous echotexture. There is a 2 mm x 3 mm x 1.2 mm cyst in the midpole. ISTHMUS: The isthmus measures 2 mm. The regional lymph nodes are normal. US/Thyroid IMPRESSION: 5 mm x 3 mm x 3 mm hypoechoic solid nodule in the midpole of the right lobe. Yearly follow-up is recommended. 2 mm x 3 mm by 1.2 mm cyst in the left lobe. Electronically Signed: Irving Lyles MD at 14:08 EDT ,
== END | disposition home or self-care (01) ==
LOC: US 16:26
PROVIDERS: Referring Provider Obstetrics & Gynecology; Visit Provider Obstetrics & Gynecology
DX: E01.0 Iodine-deficiency related diffuse (endemic) goiter (principal)
CPT/HCPCS: 76536

== ENCOUNTER 2024-08-29 09:00 | Outpatient (CLI) | payer MEDICAID, SELFPAY ==
[2024-07-14 11:59] LABS: T4 Free Direct 0.86 ng/dL (0.76-1.46)
== END 2024-08-29 23:00 | disposition home or self-care (01) ==
LOC: SDC 12-28 10:08
PROVIDERS: Referring Provider Obstetrics & Gynecology; Visit Provider Obstetrics & Gynecology
DX: E01.0 Iodine-deficiency related diffuse (endemic) goiter (principal); Z13.29 Encounter for screening for other suspected endocrine disorder
CPT/HCPCS: 36415; 84439; 84443

== ENCOUNTER → 2025-01-18 | Outpatient (CLI) | payer MEDICAID, SELFPAY ==
[2025-01-23 17:08] LABS: HPV APTIMA, High Risk Positive (Negative)
== END | disposition home or self-care (01) ==
LOC: LABSPEC 09:42
PROVIDERS: Referring Provider Nurse Practitioner Women's Health; Visit Provider Nurse Practitioner Women's Health
DX: Z12.4 Encounter for screening for malignant neoplasm of cervix (principal)
CPT/HCPCS: 87624; 88175; G0145

== ENCOUNTER → 2025-02-27 | Outpatient (CLI) | payer MEDICAID, SELFPAY ==
--- NOTE | 2025-02-27 13:25 | CER_PTH ---
PATIENT: AALIYAH LOPEZ LOC: [facility] U#:[id number] AGE/SX: 29/F ROOM: RE02/27/[address]: Dr. Christine Peck DO : 1995 BED: DIS: 02/27/2025 SPEC #: [id number] RECD: 02/27/25 15:22 STATUS: CRISTOBAL SHELDON #: [id number] CHOLO: 02/27/25 13:[address]: Christine Peck DEPT: SURGICAL PATHOLOGY RECD BY: Ezekiel Sevilla ENTERED: 02/28/25 08:57 SP TYPE: CERV OTHR DR: Lisa Primary Care Phys Tissues: A - Endocervical B - Uterine cervix, NOS Procedures: Immunohistochemical Stains Surgery Specimen Level IV HEADER OPERATION: Colposcopy PRE-OP DIAGNOSIS: LGSIL TISSUE SUBMITTED: A- ECC B- 12o'clock MICROSCOPIC DIAGNOSIS A. Cervix, endocervical curettage: * Scant superficial fragments of squamous epithelium with HPV associated cytopathic effect (See note) Note: The p16 immunostain is negative. B. Cervix, 12:00, biopsy: * Squamous epithelium and endocervical glandular tissue, negative for intraepithelial lesion MICROSCOPIC DESCRIPTION Slides are reviewed. GROSS DESCRIPTION A. Received in formalin in a container labeled with the patient's name, date of , and ECC is a scant amount of soft tissue submitted entirely for cellblock preparation in A1. B. Received in formalin in a container labeled with the patient's name, date of , and 12:00 is a 0.5 x 0.3 x 0.3 cm fragment of white and red, rubbery soft tissue. Submitted in toto in B1. [facility] 02-28-2025 CPT:[id number]
== END | disposition home or self-care (01) ==
LOC: LABSPEC 14:54
PROVIDERS: Referring Provider Obstetrics & Gynecology; Visit Provider Obstetrics & Gynecology
DX: Z11.51 Encounter for screening for human papillomavirus (HPV) (principal)
CPT/HCPCS: 88305; 88342